=== PATIENT | male | born 1970 | race Caucasian/White ===

== ENCOUNTER 2017-12-13 12:12 | Emergency (ER) | payer OTHER, SELFPAY ==
[2017-12-13 12:22] VITALS: BP 119/78; PULSE 94; RESP 16; TEMP 37.2; O2SAT 96
--- NOTE | 2017-12-13 12:34 | DI.RAD_ITS ---
SYMPTOM/DIAGNOSIS: RT DISTAL FEMUR PAIN, CONCERN FOR FX VS MUSCLE RUPTURE RIGHT FEMUR: There is no evidence of fracture or dislocation. IMPRESSION: Negative right femur
--- NOTE | 2017-12-13 12:34 | DI.RAD_ITS ---
SYMPTOM/DIAGNOSIS: RT DISTAL FEMUR PAIN, CONCERN FOR FX VS MUSCLE RUP RIGHT KNEE: The patient is status post ACL repair. There are degenerative changes of the medial femoral tibial joint. No acute fracture or joint effusion is seen. IMPRESSION: Post surgical and degenerative changes. No acute abnormality.
--- NOTE | 2017-12-13 12:34 | DI.RAD_ITS ---
SYMPTOM/DIAGNOSIS: RT DISTAL FEMUR PAIN, CONCERN FOR FX VS MUSCLE RUP. PELVIS : No fracture or dislocation is seen. A bone island is incidentally noted in the proximal left femur. There is mild bilateral acetabular spurring. The S-I joints and pubic symphysis appear intact. IMPRESSION: No acute abnormality.
--- NOTE | 2017-12-13 14:08 | DI.VRAD_ITS ---
EXAM: XR Right Femur, 2 Views EXAM DATE/TIME: 12/13/2017 1:23 PM CLINICAL HISTORY: 47 years old, male; Signs and symptoms; Other: R distal femur pain, concern f TECHNIQUE: XR Right femur, 4 images total. COMPARISON: No relevant prior studies available. FINDINGS: Bones/joints: No acute fracture is identified. There is evidence of prior surgery on the distal femur and proximal tibia, probably ACL repair, possibly with chronic modeling deformity of a prior tibial plateau fracture. The hip joint is normally aligned and demonstrates very mild periarticular osteophyte formation. The knee demonstrates mild joint space narrowing and periarticular osteophyte formation. Soft tissues: The soft tissues, including in the suprapatellar region, appear grossly unremarkable. IMPRESSION: 1. No acute fracture identified. 2. Degenerative changes as described. 3. Postoperative knee as described. Dictated and Authenticated by: Geovanni Henriquez MD. Ordering:STEPHANIA GHOSH MD
--- NOTE | 2017-12-13 14:09 | DI.VRAD_ITS ---
EXAM: XR Pelvis, 1 or 2 Views EXAM DATE/TIME: 12/13/2017 1:21 PM CLINICAL HISTORY: 47 years old, male; Signs and symptoms; Other: R distal femur pain, concern f TECHNIQUE: XR pelvis, 1 or 2 views COMPARISON: CT - ABD PELVIS WITH CONTRAST 12/14/2013 4:37 AM FINDINGS: No acute fracture is identified. Hip joint alignment is not confirmed without lateral view(s). The femoral head articular contours are maintained, and the femoral heads are of normal density. There is very mild osteophyte formation about the bilateral hip and sacroiliac joints. Intertrochanteric left femoral sclerotic density corresponds to bone island on the CT. The soft tissues appear grossly unremarkable. IMPRESSION: 1. No acute fracture identified. MRI would be more sensitive to pelvic and hip fracture as clinically appropriate. 2. Degenerative changes as described. Dictated and Authenticated by: Geovanni Henriquez MD. Ordering:STEPHANIA GHOSH MD
--- NOTE | 2017-12-13 14:10 | DI.VRAD_ITS ---
EXAM: XR Right Knee, 1 or 2 Views EXAM DATE/TIME: 12/13/2017 1:23 PM CLINICAL HISTORY: 47 years old, male; Signs and symptoms; Other: R distal femur pain, concern f; Prior surgery; Surgery date: 6+ months; Surgery type: Knee surgery. ; Patient HX: R distal femur pain, concern FX , lateral knee view included on the femur exam TECHNIQUE: XR Right knee 1 or 2 views. COMPARISON MORE: CR - XR femur RT 12/13/2017 12:50:57 PM COMPARISON: No relevant prior studies available. FINDINGS: Bones/joints: As correlated with the femoral radiographs, the knee joint is normally aligned. No acute fracture is identified. There is mild osteophyte formation about the medial compartment. There are operative changes of apparent prior ACL repair with potential chronic fracture of the tibial plateau. Soft tissues: The soft tissues appear grossly unremarkable. IMPRESSION: 1. No acute fracture identified. 2. Degenerative changes as described. 3. Postoperative changes as described. Dictated and Authenticated by: Geovanni Henriquez MD. Ordering:STEPHANIA GHOSH MD
--- NOTE | 2017-12-13 22:08 | ED.GENADUL_ITS ---
Discharge Plan Disposition Patient Disposition: HOME Condition: Good Discharge Details Chief Complaint: Orthopedic Clinical Impression: Acute thigh pain, Muscle ache Primary Care Provider: Anjali Reyna ED Provider: Francisco Awad Home Meds and New Rx's Prescriptions: No Action ibuprofen [Ibuprofen IB] 200 mg Tablet 800 mg PO QID PRNRF: 0 Discharge Instructions Instructions: Musculoskeletal Pain (ED), Leg Pain (ED) Additional Instructions: Please contact Dr. Perera immediately for follow-up. Please inform him that the ER doctor was concerned that he may have a tear in the quadriceps/vastus lateralis muscle. Please maintain the brace at all times. Please take a daily 81 mg aspirin. Please take Tylenol and Motrin for pain, and use ice and heat as much as possible on your thigh. Please use your home crutches to keep all weight off of your lower extremity. If you notice any numbness, change in temperature, firmness in your thigh, worsening pain, or severe discoloration please return immediately for reevaluation. If you notice any worsening of your symptoms, or any new symptoms such as vomiting, diarrhea, fever, chills, shortness of breath, chest pain, numbness, weakness, or fainting , please return immediately to the emergency department for reevaluation. Please follow up with your primary care provider as soon as possible for reassessment and reevaluation. As always, it was a pleasure participating in your medical care today. Discharge Data Discharge Date/Time-TO BE ENTERED AT DEPARTURE: 12/13/17 15:15 Medical Decision Making MDM Narrative Medical decision making narrative: This is a very pleasant 47-year-old male who presents for evaluation of right femur pain after falling 10 feet off a ladder. Sent for the pain in his right femur he has no other pain. He has no pain in his ankles, his feet, or his knees. Patient does demonstrate some soft tissue swelling, but does appear to be a small increase in muscle density over the distal aspect of what I would believe to be the vastus lateralis. He has pain with abduction at the hip, as well as extension of the knee. Reflexes are intact, sensation is intact. Capillary refill is brisk, dorsalis pedis pulses are +2 bilaterally. Radiographs were performed and for the knee and per virtual radiology demonstrate no acute fracture identified, degenerative changes and postoperative changes are noted with a chronic tibial plateau fracture but no evidence of acute fracture is identified. Pelvis demonstrates no evidence of acute fracture. Degenerative changes are noted though. With a physical exam that demonstrates no significant tenderness over the knee itself, more so tenderness over the lateral aspect of the femur, particularly over the muscle belly of the quadriceps muscles, I do feel that his symptoms are inconsistent with a acute tibial plateau fracture. Patient ambulates well with only a mild limp. Because of the concern for tendon/ ligamentous/muscle l body tear or damage over the quadriceps have placed the patient in an immobilizing knee brace. The patient does have crutches at home and will be using these 2 maintain nonweightbearing status for his right lower extremity. The patient sees Dr. Perera on an outpatient basis, and is requesting to follow-up with him. He has a patient's history of DVTs I have recommended that he start a daily aspirin. We did discuss potential anticoagulation the patient is medically at that he is not interested in anticoagulation at this time. We discussed red flags which to return including signs or symptoms concerning for compartment syndrome, worsening pain, worsening muscle changes, or signs of neurologic compromise and the patient understands. I have extensively reviewed the treatment plan and discharge instructions with the patient and their family. I have addressed all patient concerns at this time. The patient and family was made aware of what symptoms to monitor for that would warrant a return to the emergency department. Discussed the plan with the patient and family, they demonstrate verbal understanding and agreement with our assessment and plan at this time. HPI - General Adult General Date/Time Provider Initiated Documentation: 12/13/17 12:34 . 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 He is not on any blood thinners at this time. He presents today for evaluation after fall. Patient states that he was 10 feet off the ground on the ladder when he fell off the ladder and landed on his feet. He did fall to the ground. He had no pain anywhere else. He did not strike his head, lose consciousness, or hit or harm his upper extremities. The patient had notable pain in his right upper thigh just proximal to the right lateral knee. He has been able to walk since then but has notable pain with walking. He denies any radiation of the pain into his pelvis, his knee, his calf, or his ankle. He denies any pain in his ankles, chest abdomen pelvis or upper extremities. He denies any numbness tingling. He denies hearing any pop. He has no other complaints at this time. Patient denies any IV or illicit drug use. He denies any pertinent family history. Related Data Home Medications Medication Instructions Recorded Confirmed ibuprofen [Ibuprofen IB] 800 mg PO QID PRN 12/13/17 12/13/17 Allergies Allergy/AdvReac Type Severity Reaction Status Date / Time enoxaparin sodium Allergy Severe Skin Rash Unverified 12/13/17 12:31 [From Lovenox] ketorolac tromethamine Allergy Severe Skin Rash Unverified 12/13/17 12:31 [From Toradol] chlorhexidine Allergy Intermediate Skin Rash Unverified 12/13/17 12:31 propylene glycol Allergy Intermediate Rash Unverified 12/13/17 12:31 warfarin sodium Allergy Intermediate Skin Rash Unverified 12/13/17 12:31 [From Coumadin] balsam rachel Allergy Unknown Unverified 12/13/17 12:31 cocamidopropyl betaine Allergy Unknown Unverified 12/13/17 12:31 Oleamidopropyl Dimethylamine Allergy Intermediate Rash Uncoded 12/13/17 12:31 Carba Mix Allergy Unknown Uncoded 12/13/17 12:31 DMAPA Allergy Unknown Uncoded 12/13/17 12:31 Iodopropynyl Butylcarbamate Allergy Unknown Uncoded 12/13/17 12:31 General Stated Complaint: Orthopedic [place]: 3 Review of Systems Review of Systems 10 point review of systems was performed, pertinent positives and negatives are noted in the history of present illness. PFSH Family History Mother Neoplasm Father Diabetes Heart disease Cerebrovascular accident Brother No problems noted. Brother No problems noted. Grandfather Heart disease Grandfather Neoplasm Grandmother Neoplasm Grandmother No problems noted. Social History Smoking/Tobacco Use Status: Never Surgical History Arthroplasty of knee Rotator Cuff Repair Splenomegaly (~04/2002) Exam Narrative Exam Narrative: 1.Const: Well-nourished, Well-developed, appearing stated age 2.Eyes: PERRL, no conjunctival injection, and symmetrical lids. 3.ENT: Atraumatic external nose and ears. Moist MM. Neck: Symmetric, trachea midline, No thyromegaly. There is no evidence of raccoon eyes, blanchard sign, CSF rhinorrhea, mastoid tenderness, cranial crepitus, hemotympanum, exophthalmos , or hyphema. Patient demonstrates intact dentition with no signs of tooth avulsion or fracture, no signs of jaw deformity, no evidence of a LeFort's fracture, with an intact palate, nose and orbital region. There is no evidence of a nasal septal hematoma. No proptosis. Jaw closes symmetrically. Airway is clear. 4.CVS: +S1/S2, No murmurs or gallops. Peripheral pulses 2+ and equal in all extremities. Brisk capillary refill in all extremities. 5.RESP: Unlabored respiratory effort. Clear to auscultation bilaterally. No wheezes rales or rhonchi 6.GI: Soft, Nontender/Nondistended, No hepatosplenomegaly. No guarding or rebound. 7.MSK: Normocephalic, Extremities w/o deformityNo cyanosis or clubbing, patient demonstrates mild tenderness in the right lateral thigh over the distribution of the vastus lateralis. There does appear to be a slight amount of swelling at the distal component of the vastus lateralis just proximal to the distal femur on the right lateral aspect. The patient is able to flex and extend, and rotate internally and externally his hip on the right in the left. He is able to demonstrate 5 out of 5 plantar and dorsiflexion of the feet. He has no pain with abduction of the thigh, but does have pain with abduction. He has pain with extension of the knee but no pain with flexion of the knee. No joint laxity for the knee or the ankles. No pain with logroll of the legs. Normal sensation throughout the entire leg, with good 2 point discrimination, overall aspects of the leg. Compartments are soft, with no evidence of significant tension or pressure in all components of the leg. Patellar reflex +2 bilaterally. 8.Skin: Warm, Dry. No rashes or lesions. 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 Sensation grossly intact, no focal neurologic deficits. No midline tenderness to palpation over the CTLS spine. Normal ROM in flexion, extension, side bend, and rotation. Patient has +5 out of 5 strength in the lower extremities in dorsiflexion and plantarflexion, knee flexion and extension, hip flexion and extension. There is +2 over 2 dorsalis pedis pulses bilaterally. There is normal sensation to the skin with light touch at the foot, knee, and hip. Normal saddle sensation. Good sensation over the deep sural nerve area bilaterally. Rectal exam deferred. Reflexes are +2 over 4 in the patellar reflex bilaterally. +5 out of 5 strength in the medial, ulnar, radial nerve distribution bilaterally in the hands as well as intact light touch sensation to these dermatomes on the hands 10.Psych: (AAO) x3. Appropriate mood and affect Course Vital Signs Temperature 37.2 C 12/13/17 12:22 Pulse 94 H 12/13/17 12:22 Respiratory Rate 16 12/13/17 12:22 Blood Pressure 119/78 12/13/17 12:22 Pulse Oximetry 96 12/13/17 12:22 Temperature 37.2 C 12/13/17 12:22 Pulse 94 H 12/13/17 12:22 Respiratory Rate 16 12/13/17 12:22 Blood Pressure 119/78 12/13/17 12:22 Pulse Oximetry 96 12/13/17 12:22
== END 2017-12-13 15:15 | disposition home or self-care (01) ==
PROVIDERS: Emergency Provider Student in an Organized Health Care Education/Training Program; PCP Family Medicine
DX: M79.651 Pain in right thigh (principal); T14.8XXA Other injury of unspecified body region, initial encounter; W11.XXXA Fall on and from ladder, initial encounter
CPT/HCPCS: 29505; 73552; 99284; 72170; 73560; 99285